=== PATIENT | male | born 1995 | race Caucasian/White ===

== ENCOUNTER 2018-07-15 06:19 | Emergency (ER) | payer MEDICAID, SELFPAY ==
[2018-07-15 06:20] VITALS: BP 147/102; PULSE 91; RESP 16; TEMP 36.6; O2SAT 100; BMI 19.0
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
[2018-07-15] MEDS: HYDROcodone Bitartrate/Apap 5/325 Tablet PO (06:42)
--- NOTE | 2018-07-15 07:50 | DCINST.ED_ITS ---
ED Disposition - Plan for ED Patient: Disposition: Home or Assisted Living Chief Complaint: Upper Extremity Injury Instructions: ED Fx Hand Closed, ED Fx Wrist Navicular Poss Prescriptions: Hydrocodone Bitart/Apap 5-325 [[place] 5MG-325MG] 1 tab PO Q6H PRN PRN 3 Days #12 tab PRN Reason: Pain Naproxen [Naprosyn] 500 mg PO BID PRN #20 tab Referrals: Care Physician,No Primary [Primary Care Provider] - Selma Pedraza DO [STAFF PHYSICIAN] - 5-7 Days Additional Instructions: Please follow-up with orthopedics within 1 week. Keep the splint clean and dry. You may use naproxen as needed for mild to moderate pain. Use the [place] for severe or nighttime pain. If you have any worsening of your condition or any new concerning symptoms, please return immediately to the emergency department for another evaluation.
[2018-07-15 07:58] VITALS: BP 139/92; PULSE 88; RESP 18
== END 2018-07-15 08:01 | disposition home or self-care (01) ==
PROVIDERS: Emergency Provider Emergency Medicine
DX: S62.396A Other fracture of fifth metacarpal bone, right hand, initial encounter for closed fracture (principal); Z72.0 Tobacco use; V87.8XXA Person injured in other specified noncollision transport accidents involving motor vehicle (traffic), initial encounter; Y93.55 Activity, bike riding; Y92.410 Unspecified street and highway as the place of occurrence of the external cause; Y99.8 Other external cause status
CPT/HCPCS: 29125; 73080; 73110; 73130; 99283

== ENCOUNTER 2019-02-08 01:16 | Emergency (ER) | payer SELFPAY ==
[2019-02-08 01:17] VITALS: BP 124/98; PULSE 109; RESP 16; TEMP 37.4; O2SAT 99; BMI 18.4
[2019-02-08] MEDS: Metoclopramide 10 MG/2 ML Vial IV (02:18)
[2019-02-08] MEDS: DiphenhydrAMINE 50 MG/ML Syringe 12.5 MG IV (02:18)
--- NOTE | 2019-02-08 02:31 | CT_ITS ---
HISTORY: SEVERE MIGRAINE TODAY TECHNIQUE: Noncontrast axial images were obtained of the brain. Subsequently, routine carotid CT angiogram protocol was performed without and with IV contrast. In addition, images were obtained of the [place] of [place]. Nascet criteria using the distal ICAs for comparison were used for evaluation of stenoses. 3D reconstructions were reviewed. A radiation dose optimization technique was used for this scan. IV Contrast dosage and agent: 100ML Isovue 370 COMPARISON: None FINDINGS: --CT Brain: PARANASAL SINUSES AND MASTOID AIR CELLS: Mild mucosal thickening ethmoid air cells. Otherwise clear. INTRACRANIAL HEMORRHAGE: None. BRAIN PARENCHYMA: No CT evidence of acute infarct. No intracranial mass or mass effect. There is preservation of the [place]/white matter interface. Posterior fossa structures are unremarkable. CSF SPACES: Appropriate for age. There is no hydrocephalus. Basal cisterns are patent. CALVARIUM and SKULL BASE: No discrete lytic or blastic abnormalities observed. ORBITS: Both globes, extraocular muscles, optic nerves and retrobulbar fat appear unremarkable. ASPECTS Score for Acute Strokes: 10 --CTA Neck: AORTIC ARCH AND BRANCHES: Left-sided aortic arch. Incidental anatomic variant; left vertebral artery arises directly from the arch. No narrowing of the arch or great vessels. RIGHT CCA: No occlusion, significant stenosis or dissection. RIGHT ICA: No occlusion, significant stenosis or dissection. LEFT CCA: No occlusion, significant stenosis or dissection. LEFT ICA: No occlusion, significant stenosis or dissection. RIGHT VERTEBRAL ARTERY: No occlusion, significant stenosis or dissection. LEFT VERTEBRAL ARTERY: No occlusion, significant stenosis or dissection. --CTA Head: ICAs: No significant stenosis at the intracranial/visualized segments. ACAs: No significant stenosis at the visualized segments. ACOM is present. MCAs: No significant stenosis at the visualized segments. laborer tree tapping: No significant stenosis at the visualized segments. Prominent patent bilateral posterior communicating arteries providing dominant supply to both laborer tree tapping. BASILAR ARTERY: No significant stenosis. VERTEBRAL ARTERIES: No significant stenosis at the intradural/visualized segments. No evidence of intracranial aneurysm or vascular malformation. Other structures: Chronic nasal fracture. Chronically absent left maxillary medial incisor. CT/CTA Neck W/WO Contrast IMPRESSION: Negative CT Brain, CTA Carotid, and CTA Brain. Individualized dose optimization techniques were used for this CT. at 0314 Reported and signed by: Nimesh Estrella MD Electronically Signed: Nimesh Estrella, at 3:12 EDT Tel , Service support ,
--- NOTE | 2019-02-08 02:31 | CT_ITS ---
HISTORY: SEVERE MIGRAINE TODAY TECHNIQUE: Noncontrast axial images were obtained of the brain. Subsequently, routine carotid CT angiogram protocol was performed without and with IV contrast. In addition, images were obtained of the [place] of [place]. Nascet criteria using the distal ICAs for comparison were used for evaluation of stenoses. 3D reconstructions were reviewed. A radiation dose optimization technique was used for this scan. IV Contrast dosage and agent: 100ML Isovue 370 COMPARISON: None FINDINGS: --CT Brain: PARANASAL SINUSES AND MASTOID AIR CELLS: Mild mucosal thickening ethmoid air cells. Otherwise clear. INTRACRANIAL HEMORRHAGE: None. BRAIN PARENCHYMA: No CT evidence of acute infarct. No intracranial mass or mass effect. There is preservation of the calab[place]/white matter interface. Posterior fossa structures are unremarkable. CSF SPACES: Appropriate for age. There is no hydrocephalus. Basal cisterns are patent. CALVARIUM and SKULL BASE: No discrete lytic or blastic abnormalities observed. ORBITS: Both globes, extraocular muscles, optic nerves and retrobulbar fat appear unremarkable. ASPECTS Score for Acute Strokes: 10 --CTA Neck: AORTIC ARCH AND BRANCHES: Left-sided aortic arch. Incidental anatomic variant; left vertebral artery arises directly from the arch. No narrowing of the arch or great vessels. RIGHT CCA: No occlusion, significant stenosis or dissection. RIGHT ICA: No occlusion, significant stenosis or dissection. LEFT CCA: No occlusion, significant stenosis or dissection. LEFT ICA: No occlusion, significant stenosis or dissection. RIGHT VERTEBRAL ARTERY: No occlusion, significant stenosis or dissection. LEFT VERTEBRAL ARTERY: No occlusion, significant stenosis or dissection. --CTA Head: ICAs: No significant stenosis at the intracranial/visualized segments. ACAs: No significant stenosis at the visualized segments. ACOM is present. MCAs: No significant stenosis at the visualized segments. refuge worker: No significant stenosis at the visualized segments. Prominent patent bilateral posterior communicating arteries providing dominant supply to both refuge worker. BASILAR ARTERY: No significant stenosis. VERTEBRAL ARTERIES: No significant stenosis at the intradural/visualized segments. No evidence of intracranial aneurysm or vascular malformation. Other structures: Chronic nasal fracture. Chronically absent left maxillary medial incisor. CT/CTA Head W/WO Contrast IMPRESSION: Negative CT Brain, CTA Carotid, and CTA Brain. Individualized dose optimization techniques were used for this CT. at 0313 Reported and signed by: Nimesh Estrella MD Electronically Signed: Nimesh Estrella, at 3:12 EDT Tel , Service support ,
[2019-02-08 02:38] LABS: Bacteria 0 SEEN /hpf (None Seen); Mucous, Urine 0 SEEN /hpf (<or=2+); Red Blood Cells-Urine 0 SEEN /hpf (0-5); Squamous Epithelial Cells - UA 0 SEEN /hpf (0-5); White Blood Cells 0 SEEN /hpf (0-5)
[2019-02-08 02:44] LABS: Color, Urine Yellow (Yellow); Glucose, Dipstick Normal (Normal); Ketone-Dipstick Negative (Negative); Leukocyte Esterase-Dipstick Negative /ul (Negative); Nitrite-Dipstick Negative (Negative); Occult Blood-Urine Negative /ul (Negative); Protein-Dipstick 30 mg/dl (Negative); Specific Gravity, Urine 1.015 (1.002-1.030); Urine Bilirubin Dipstick Negative (Negative); Urine Clarity Sl. Cloudy (Clear); Urine Urobilinogen 1 mg/dl (Normal)
[2019-02-08 02:48] LABS: Absolute Lymphocyte Count 0.49 X10^3/ul (0.83-4.51); Absolute Neutrophil Count 2.3 X10^3/uL (2.0-7.7); Basophil# 0.01 X10^3/uL; Basophil% 0.3 % (0-1); Hematocrit 45.9 % (40-54); Hemoglobin 15.8 g/dl (13.0-16.5); Lymphocyte # 0.49 X10^3/ul (4.0); Lymphocyte % 14.3 % (19-41); Mean Corp Hgb Conc 34.4 g/gl (32-36); Mean Corpuscular Hgb 29.7 pg (27.0-32.0); Mean Corpuscular Volume 86.3 fL (80-94); Mean Platelet Vol. 9.6 fl (6.2-12.0); Monocyte# 0.61 X10^3/uL; Monocyte% 17.8 % (0-10); Neutrophil # 2.31 X10^3/uL (2.7-7.7); Neutrophil % 67.6 % (47-70); Platelet Count 189 K/mm3 (150-450); RBC Distribution Width CV 13.1 % (11.6-14.6); RBC Distribution Width SD 41.6 fl (35.1-43.9); Red Blood Count 5.32 M/mm3 (4.6-6.2); White Blood Count 3.4 K/mm3 (4.4-11.0)
--- NOTE | 2019-02-08 02:50 | ED.VISSUMM ---
- ER Visit Summary Date of Service: 02/08/19 Chief Complaint: Headache History of Present Illness: The patient is a 23 M presenting with headache. Patient states this started this morning. Gradually worsened throughout the day. He has light sensitivity. Denies trauma. He has taken Tylenol with some improvement. His grandmother yesterday. Denies fever. 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 Denies other complaints. Physical Examination: Vitals are stable. Temperature 99.4. Alert no acute distress. HEENT exam is unremarkable. Neck is supple. No meningismus Lungs are clear and equal bilaterally. Heart is regular and tachycardic. Abdomen is soft nontender nondistended. Extremities are unremarkable. Skin is warm and dry. No rash No focal neurologic deficit. Remainder of exam is unremarkable. Emergency Department Course and Treatment: Patient was given Reglan, Benadryl IV. Negative CT Brain, CTA Carotid, and CTA Brain. CBC, chemistries unremarkable. Urinalysis unremarkable. Tox positive for amphetamine. On reevaluation patient states his headache is starting to improve. He was given Toradol IV with improvement. He is requesting discharge home. He states he feels well enough to go home. He is advised to follow-up with primary care physician. Advised to return to the ED for worsening complaints. Disposition: Discharge home Impression: Headache This note was generated with [employer] dictation software. It may contain incorrect words, spelling, and punctuation that were not noted in review of the chart prior to signing ED Disposition - Plan for ED Patient: Disposition: Home or Assisted Living Instructions: HEADACHE, Unspecified Referrals: Yoel Berger MD [NON-STAFF] -
[2019-02-08 02:54] LABS: Amorphous Sediment 3+
[2019-02-08 02:55] LABS: Anion Gap 5 (5-15); BUN 11 mg/dL (7-18); BUN/Creat Ratio 10.4 RATIO (10-20); Chloride 101 mmol/L (98-107); Creatinine, Serum 1.06 mg/dL (0.70-1.30); EST Glomerular Filtration Rate 93 mL/min (>60); Est Glom Filt Rate - Afr Amer 112 mL/min (>60); Estimated Creatinine Clearance 95.55 ml/min; Glucose 118 mg/dL (74-106); Potassium 3.6 mmol/L (3.5-5.1); Sodium Level 134 mmol/L (136-145)
[2019-02-08 03:14] LABS: Alcohol, Blood (Medical)-Serum < 3.0 mg/dL
[2019-02-08 03:16] VITALS: BP 122/78; PULSE 82; RESP 16; O2SAT 97
[2019-02-08 03:24] LABS: Amphetamine Urine VISTA POSITIVE (<1000 ng/mL); Barbiturate Urine VISTA NEGATIVE (< 200 ng/mL); Benzodiazepine Urine VISTA NEGATIVE (< 200 ng/mL); Cocaine Urine VISTA NEGATIVE (< 300 ng/mL); Ecstacy Urine VISTA NEGATIVE (< 500 ng/mL); Methadone Urine VISTA NEGATIVE (< 300 ng/mL); PCP Urine VISTA NEGATIVE (< 25 ng/mL); THC Urine VISTA NEGATIVE (< 50 ng/mL); Vista UDS pH Range 6
[2019-02-08] MEDS: Ketorolac 30 MG/ML Syringe IV (03:27)
[2019-02-08] MEDS: 0.9% Normal Saline 1,000 ML 999 ML IV (03:27)
[2019-02-08 03:28] LABS: Differential Indicated SCAN CRITERIA MET; POSITIVE COUNT NO; POSITIVE DIFFERENTIAL YES; POSITIVE MORPHOLOGY NO
[2019-02-08 03:58] VITALS: TEMP 37.6
--- NOTE | 2019-02-08 04:29 | DCINST.ED_ITS ---
ED Disposition - Plan for ED Patient: Instructions: HEADACHE, Unspecified Referrals: Yoel Berger MD [NON-STAFF] -
--- NOTE | 2019-02-08 04:29 | ED.DEP ---
ED Disposition - Plan for ED Patient: Instructions: HEADACHE, Unspecified Referrals: oYel Berger MD [NON-STAFF] -
[2019-02-08 04:35] VITALS: BP 122/78; PULSE 89; RESP 117; TEMP 37.6; O2SAT 99
[2019-02-12 14:21] LABS: Pathologist Review Reviewed
== END 2019-02-08 04:37 | disposition home or self-care (01) ==
LOC: ED 02:41
PROVIDERS: Emergency Provider Emergency Medicine
DX: R51 Headache (principal); Z72.0 Tobacco use
CPT/HCPCS: 36415; 70496; 70498; 80048; 80307; 80320; 81001; 85025; 96361; 96374; 96375; 99284; J7030; Q9967; A4216; G0480

== ENCOUNTER 2020-10-31 10:29 | Emergency (ER) | payer SELFPAY ==
[2020-10-31 10:29] VITALS: BP 169/108; PULSE 84; RESP 16; TEMP 36.5; O2SAT 99; BMI 18.1
--- NOTE | 2020-10-31 10:40 | ED.DEP ---
ED Disposition - Plan for ED Patient: Instructions: ED Dental Pain Prescriptions: Naproxen [Naprosyn] 500 mg PO BID PRN #20 tablet Prescription Printed Penicillin V Potassium 500 mg PO 4X/DAY #40 tablet Prescription Printed Referrals: Care Physician,No Primary [Primary Care Provider] -
--- NOTE | 2020-10-31 10:44 | ED.VISSUMM ---
- ER Visit Summary Date of Service: 10/31/20 Chief Complaint: Dental pain History of Present Illness: The patient is a 25 M presenting with dental pain. Patient states this started 4 days ago. Patient complains of pain left upper teeth. He has had subjective fever. He does not currently have a dentist. He has tried ibuprofen at home. Denies other complaints. Physical Examination: Vitals are stable. Patient is afebrile. Alert no acute distress. HEENT exam widespread dental decay. Left upper incisor decay with tenderness. No surrounding fluctuance. No sublingual edema. Neck is supple. Lungs are clear and equal bilaterally. Heart is regular rate and rhythm. Extremities are unremarkable. Skin is warm and dry. Remainder of exam is unremarkable. Emergency Department Course and Treatment: Patient was given [place] x1. He is given prescription for penicillin and Naprosyn. Advised to follow-up with dentist. He is given a dental referral list. Advised return to ED for worsening complaints. Disposition: Discharge home Impression: Odontalgia This note was generated with [employer] dictation software. It may contain incorrect words, spelling, and punctuation that were not noted in review of the chart prior to signing ED Disposition - Plan for ED Patient: Instructions: ED Dental Pain Prescriptions: Naproxen [Naprosyn] 500 mg PO BID PRN #20 tablet Prescription Printed Penicillin V Potassium 500 mg PO 4X/DAY #40 tablet Prescription Printed Referrals: Care Physician,No Primary [Primary Care Provider] -
[2020-10-31] MEDS: Penicillin Vk 250 MG Tablet 500 MG PO (10:47)
[2020-10-31] MEDS: HYDROcodone Bitartrate/Apap 5/325 Tablet PO (10:47)
== END 2020-10-31 10:54 | disposition home or self-care (01) ==
LOC: ED 10:48
PROVIDERS: Emergency Provider Emergency Medicine
DX: K08.89 Other specified disorders of teeth and supporting structures (principal); F17.200 Nicotine dependence, unspecified, uncomplicated
CPT/HCPCS: 99283

== ENCOUNTER 2023-01-10 22:33 | Emergency (ER) | payer MEDICAID, SELFPAY ==
[2023-01-10 22:33] VITALS: BP 126/86; PULSE 80; RESP 15; TEMP 37.1; O2SAT 98; BMI 20.4
--- NOTE | 2023-01-10 22:51 | ED.VIS.DENTA ---
HPI History of Present Illness Chief Complaint: Dental Informant: patient Narrative Narrative: Patient states he has some pain in the right upper tooth. He says its been bothering him along with his other teeth off and on for about 2 years. He had a lot of his front teeth pulled. He is trying to get more of them pulled but insurance will not approve it. He states he had a pus pocket above the tooth earlier today. But he put pressure on and this and it drained. That took away a lot of the discomfort. He plans to follow-up with the dentist as soon as he can. He was just concerned about infection. No trouble eating or drinking. No other new or acute complaints. He denies any allergies or intolerances. He takes no medicines. PFSH PFSH Home Medications naproxen 500 mg tablet 500 mg PO BID PRN #20 tabs 07/15/18 [Rx Last Taken Unknown] naproxen 500 mg tablet 500 mg PO BID PRN #20 tabs 10/31/20 [Rx Last Taken Unknown] penicillin V potassium 500 mg tablet 500 mg PO 4X/DAY #40 tabs 10/31/20 [Rx Last Taken Unknown] naproxen 500 mg tablet (Naprosyn) 500 mg PO BID PRN pain #20 tabs 01/10/23 [Rx Last Taken Unknown] penicillin V potassium 500 mg tablet 500 mg PO 4X/DAY #40 tabs 01/10/23 [Rx Last Taken Unknown] Allergy/AdvReac Type Severity Reaction Status Date / Time No Known Allergies Allergy Verified 01/10/23 22:36 Social History Smoking Status: Current every day smoker ROS ROS ED ROS Narrative A complete review of systems was performed and is negative except as documented in the history of present illness. Some specific details below. Constitutional: No recent fevers or chills. No malaise. EYE: No visual complaints or pain. ENT: No difficulty swallowing. See history of present illness. No trouble swallowing. No change in voice. CV: No chest pain or palpitations. Respiratory: No dyspnea. No hemoptysis. No difficulty taking breaths. GI: No nausea vomiting trouble eating or drinking. : No frequency dysuria or hematuria. Musculoskeletal: No recent trauma. No pains. Skin: No rash. Nondiaphoretic. Neuro: No weakness or numbness. Endocrine: No polyuria or polydipsia. EXAM Physical Exam Narrative Exam Narrative: Patient awake alert no acute distress sitting comfortably in bed. HEENT shows no external swelling is visible. Speech is normal. Dental exam does show some erythema of the gums external to lateral incisor and first premolar area on the upper right. But there is no actual abscess visible. He states he already did drain this. But it is a little bit red and there is some tenderness there. He has some diffusely poor dentition. No sign of Ludewig's angina. Neck is supple and there is no lymphadenopathy Heart is regular. There is no murmur heard. Lungs are clear bilaterally. Saturation are normal at 98% on room air showing no hypoxia. Const Vital Signs: 01/10/23 22:33 Temperature 98.7 F Temperature Source Temporal Pulse Rate 80 Respiratory Rate 15 Blood Pressure 126/86 H Blood Pressure Mean 99 Pulse Ox 98 Oxygen Delivery Method Room Air MDM MDM MDM Narrative Medical decision making narrative: Patient is already drained this area. But with the erythema tenderness and purulent drainage I will start him on antibiotics. He will contact dentist. We will also refer him to a private physician for general needs. Discharge Plan Triage Chief Complaint: Dental ED Provider: Cullen Osuna Dx/Rx/DC Orders Clinical Impression: Dental abscess, Pain, dental Instructions: ED Dental Abscess Prescriptions: New penicillin V potassium 500 mg tablet 500 mg PO 4X/DAY Qty: 40 0RF naproxen [Naprosyn] 500 mg tablet 500 mg PO BID PRN (Reason: pain) Qty: 20 0RF No Action naproxen 500 MG tablet 500 mg PO BID PRN Qty: 20 0RF penicillin V potassium 500 MG tablet 500 mg PO 4X/DAY Qty: 40 0RF naproxen 500 MG tablet 500 mg PO BID PRN Qty: 20 0RF Primary Care Provider: Care Physician,No Primary Referrals: Chris,Lina, DO [Med Staff - Letter Of Credit Clerk] - As Needed Care Physician,No Primary [Primary Care Provider] - Activity Restrictions/Additional Instructions: He had dentist as soon as possible. Please see attached sheet for referral options. Disposition Disposition: Home, Self Care
[2023-01-10] MEDS: Penicillin Vk 250 MG Tablet 500 MG PO (23:07)
== END 2023-01-10 23:13 | disposition home or self-care (01) ==
LOC: ED 23:08
PROVIDERS: Emergency Provider Emergency Medicine; Visit Provider Emergency Medicine
DX: K04.7 Periapical abscess without sinus (principal); F17.200 Nicotine dependence, unspecified, uncomplicated
CPT/HCPCS: 99283